=== PATIENT | female | born 2000 | race Caucasian/White ===

== ENCOUNTER 2024-05-29 13:26 | Emergency (ER) | payer OTHER, SELFPAY ==
[2024-05-29 13:30] VITALS: BP 130/86; PULSE 80; RESP 18; TEMP 37.3; O2SAT 98; BMI 24.2
--- NOTE | 2024-05-29 13:42 | CRLHL7_ITS ---
For Patients: As a result of the Cures Act, medical imaging exams and procedure reports are released immediately into your electronic medical record. You may view this report before your referring provider. If you have questions, please contact your health care provider. INDICATION: Head injury, not otherwise described. COMPARISON: 05/05/2024 (the report for which is not available). TECHNIQUE: CT of the head without intravenous contrast. Please note that all CT scans at this facility use dose modulation, iterative reconstruction, and/or weight-based dosing when appropriate to reduce radiation dose to as low as reasonably achievable. FINDINGS: The brain is normal in attenuation with preserved jaime-white matter differentiation. No hydrocephalus. No mass or mass effect. No intracranial hemorrhage. Intact skull base and cranial vault. Visualized orbits are without significant incidental findings. Visualized paranasal sinuses and mastoid air cells are clear. Rightward deviated nasal septum. IMPRESSION: No acute traumatic injury is identified. Please note that all CT scans at this facility use dose modulation, iterative reconstruction, and/or weight-based dosing when appropriate to reduce radiation dose to as low as reasonably achievable. Dictated by Jevon Pagan MD @ 05/29/2024 2:27:26 PM (Electronically Signed)
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
[2024-05-29] MEDS: diphenhydrAMINE 50 MG/ML inj 25 MG IVP (14:11)
[2024-05-29] MEDS: KETOROLAC 30 MG/ML inj IVP (14:12)
[2024-05-29] MEDS: 0.9 % SODIUM CHLORIDE 1000 ml 1,000 ML IV (14:12)
[2024-05-29 14:19] LABS: Basophils Absolute Auto 0.01 K/uL (0.00-0.30); Basophils Percent Auto 0.1 % (0.0-3.0); Eosinophils Absolute Auto 0.07 K/uL (0.00-0.50); Hematocrit 45.4 % (33.0-51.0); Hemoglobin* 15.2 gm/dL (12.0-16.0); Immature Granulocytes Abs Auto 0.02 K/uL (0.00-0.30); Immature Granulocytes Pct Auto 0.3 %; Lymphocytes Absolute Auto 2.04 K/uL (0.90-2.90); Lymphocytes Percent Auto 27.8 % (20-44); Mean Corpuscular HGB Conc 34 gm/dL (32-36); Mean Corpuscular Hemoglobin 29 pg (26-34); Mean Corpuscular Volume 87 fL (80-100); Neutrophils Absolute Auto 4.82 K/uL (1.7-7.0); Neutrophils Percent Auto 65.8 % (42.0-72.0); Platelet Count* 228 K/uL (140-440); RDW Coefficient of Variation % 11.6 % (11.5-15.5); Red Blood Count 5.21 m/uL (4.00-5.20); White Blood Count* 7.33 K/uL (4.50-11.00)
[2024-05-29 14:36] LABS: Slide Review Reflex No
[2024-05-29 14:37] LABS: Chloride* 108 mmol/L (96-114)
[2024-05-29 14:38] LABS: Potassium* 3.9 mmol/L (3.6-5.1); Sodium* 142 mmol/L (135-149)
[2024-05-29 14:40] LABS: Creatinine* 0.7 mg/dL (0.5-1.5); Est. Creatinine Clearance* 115.01; Estimated Glomerular Filt Rate 123 ml/min
[2024-05-29 14:41] LABS: Anion Gap 7 mEq/L (7-15); Blood Urea Nitrogen* 11 mg/dL (5-24); Calcium* 9.7 mg/dL (8.4-10.6); Carbon Dioxide* 27 mmol/L (20-32); Glucose* 88 mg/dL (60-115)
[2024-05-29] MEDS: ONDANSETRON 2 MG/ML inj 4 MG IVP (14:50)
[2024-05-29 15:17] VITALS: BP 128/78; PULSE 78; RESP 18; O2SAT 98
== END 2024-05-29 15:18 | disposition home or self-care (01) ==
PROVIDERS: Emergency Provider Internal Medicine
DX: R51.9 Headache, unspecified (principal)
CPT/HCPCS: 36415; 70450; 80048; 85025; 96374; 96375; 99283; 99284; J1200; J1885; J2405; J7030